=== PATIENT | male | born 1990 | race Caucasian/White ===

== ENCOUNTER → 2016-08-14 | Outpatient (REF) | payer BC | LOC: M SFHCLERA 14:15 | PROVIDERS: ATTEND Nurse Practitioner Family | DX: J06.9 Acute upper respiratory infection, unspecified (principal) ==

== ENCOUNTER → 2016-11-28 | Outpatient (REF) | payer BC | LOC: M SFHCLERA 09:54 | PROVIDERS: ATTEND Nurse Practitioner Family | DX: J02.9 Acute pharyngitis, unspecified (principal) ==

== ENCOUNTER → 2017-07-29 | Outpatient (REF) | payer BC | LOC: M SFHCCLAY 14:35 | DX: Z71.1 Person with feared health complaint in whom no diagnosis is made (principal) ==

== ENCOUNTER → 2018-06-25 | Outpatient (REF) | payer BC | LOC: M SFHCLUC 12:17 | PROVIDERS: ATTEND Physician Assistant | DX: J02.9 Acute pharyngitis, unspecified (principal) ==

== ENCOUNTER → 2018-10-19 | Outpatient (CLI) | payer BC | LOC: M LRY 13:09 | PROVIDERS: ATTEND Physician Assistant | DX: Z53.9 Procedure and treatment not carried out, unspecified reason (principal); J45.901 Unspecified asthma with (acute) exacerbation ==

== ENCOUNTER → 2019-08-13 | Outpatient (REF) | payer BC | LOC: M SFHCLERA 16:09 | PROVIDERS: ATTEND Physician Assistant | DX: R50.9 Fever, unspecified (principal) ==

== ENCOUNTER → 2019-10-21 | Outpatient (CLI) | payer BC | LOC: M LABSMTC 12:37 | PROVIDERS: ATTEND Family Medicine | DX: Z11.59 Encounter for screening for other viral diseases (principal); Z20.828 Contact with and (suspected) exposure to other viral communicable diseases ==

== ENCOUNTER → 2019-11-06 | Outpatient (CLI) | payer BC ==
--- NOTE | 2019-11-06 15:36 | REP ---
Clinical: Shortness of breath . Comparison: 04/07/2016 . Technique: PA and lateral. Findings: The mediastinum and cardiac silhouette are normal. The lung serna are clear and without acute consolidation, effusion, or pneumothorax. The skeletal structures are intact and normal. Impression: 1. No acute cardiopulmonary process. Electronically Signed by Jaime Hough MD 11/06/2019 03:28 P
== END ==
LOC: M WUC 13:35
PROVIDERS: ATTEND Physician Assistant
DX: R06.02 Shortness of breath (principal); J45.901 Unspecified asthma with (acute) exacerbation

== ENCOUNTER → 2020-01-02 | Outpatient (CLI) | payer SELFPAY | LOC: M LABSMTC 10:51 | PROVIDERS: ATTEND Pediatrics | DX: Z20.828 Contact with and (suspected) exposure to other viral communicable diseases (principal); Z11.59 Encounter for screening for other viral diseases ==

== ENCOUNTER → 2020-02-28 | Outpatient (REF) | payer SELFPAY ==
[2020-02-28 12:58] LABS: ALBUMIN 4.1 GM/DL (3.2-5.2); ALT/SGPT 278 U/L (12-78); BILIRUBIN,TOTAL 0.3 MG/DL (0.2-1.0); BLOOD UREA NITROGEN 14 MG/DL (7-18); CALCIUM LEVEL 9.2 MG/DL (8.5-10.1); CARBON DIOXIDE LEVEL 29 MEQ/L (21-32); CHLORIDE LEVEL 106 MEQ/L (98-107); CREATININE FOR GFR 0.93 MG/DL (0.70-1.30); GLOMERULAR FILTRATION RATE > 60.0 (>60); GLUCOSE, FASTING 77 MG/DL (70-100); POTASSIUM SERUM 4.9 MEQ/L (3.5-5.1); SODIUM LEVEL 140 MEQ/L (136-145); TOTAL PROTEIN 6.7 GM/DL (6.4-8.2)
[2020-02-29 11:57] LABS: HEPATITIS B SURFACE ANTIGEN NEGATIVE (NEGATIVE)
[2020-02-29 12:25] LABS: HEPATITIS B CORE ANTIBODY IGM NEGATIVE (NEGATIVE); HEPATITIS C VIRUS ABY INDEX 0.1 INDEX (<0.8)
[2020-02-29 12:27] LABS: HEPATITIS A ANTIBODY IGM NEGATIVE (NEGATIVE)
== END ==
LOC: M SFHCCLAY 11:22
PROVIDERS: ATTEND Nurse Practitioner Family
DX: F10.10 Alcohol abuse, uncomplicated (principal)